=== PATIENT | male | born 1995 | race Caucasian/White ===

== ENCOUNTER → 2024-09-04 | Outpatient (CLI) | payer OTHER | LOC: M LAB 10:26 | PROVIDERS: ATTEND Student in an Organized Health Care Education/Training Program | DX: R04.0 Epistaxis (principal) ==

== ENCOUNTER → 2024-10-09 | Outpatient (CLI) | payer OTHER | LOC: M LAB 14:16 | PROVIDERS: ATTEND Student in an Organized Health Care Education/Training Program | DX: R04.0 Epistaxis (principal) ==

== ENCOUNTER → 2025-07-20 | Outpatient (REF) | payer BC | LOC: M LAB REF 22:32 | PROVIDERS: ATTEND Physician Assistant Medical | DX: B34.9 Viral infection, unspecified (principal) ==